=== PATIENT | female | born 1995 | race Caucasian/White ===

== ENCOUNTER 2019-01-04 12:43 | Emergency (ER) | payer SELFPAY ==
[~2019-01-04] VITALS: Ht 162.6 cm; Wt 78.5 kg
[2019-01-04 13:12] VITALS: BP 146/82; PULSE 77; RESP 18; Ht 162.6 cm; Wt 78.5 kg
== END 2019-01-04 17:11 | disposition left against medical advice (07) ==
LOC: FTE 12:43
DX: Z53.21 Procedure and treatment not carried out due to patient leaving prior to being seen by health care provider (principal)